=== PATIENT | male | born 1950 | race Caucasian/White ===

== ENCOUNTER 2022-03-06 07:28 | Inpatient (IN) | payer OTHER, MEDICARE ==
[2022-03-06] MEDS ORDERED: Ketorolac Tromethamine 30 MG/ML VIAL ONE (08:01)
[2022-03-06] MEDS ORDERED: Iopamidol-370 76% 500 ML 1 ML ONE (08:45)
[2022-03-06 09:36] LABS: #Monocytes 0.8 thou/uL (0.11-0.59); #Neutrophils 9.3 thou/uL (1.40-6.50); %Basophils 0.1 % (0.0-1.0); %Eosinophils 0.3 % (0.0-10.0); %Lymphocytes 9.1 % (21.0-51.0); %Monocytes 7.3 % (0.0-10.0); %Neutrophils 83.3 % (42.0-75.0); Hemoglobin 16.5 g/dL (14.0-18.0); Mean Corpuscular HGB CONC 35.1 g/dL (32.0-36.0); Mean Corpuscular Hemoglobin 34.3 pg (27.0-31.0); Mean Corpuscular Volume 97.7 fL (78.0-98.0); Mean Platelet Volume 8.2 fL (7.4-10.4); Platelet Count 152 thou/uL (130-400); RBC Distribution Width 12.1 % (11.5-14.5); Red Blood Cell (RBC) Count 4.81 mill/uL (4.70-6.10); White Blood Cell (WBC) Count 11.1 thou/uL (4.8-10.8)
[2022-03-06] MEDS ORDERED: Morphine 4 MG/ML VIAL ONE ×2 (09:50→11:43)
[2022-03-06] MEDS ORDERED: Ondansetron PF 4 MG/2 ML Vial ONE (09:51)
[2022-03-06 09:59] LABS: ALT (SGPT) 42 U/L (8-55); AST (SGOT) 28 U/L (5-34); Albumin 3.9 g/dL (3.4-4.8); Alcohol Less than 10 mg/dL (Less than 10); Alkaline Phosphatase 105 U/L (40-110); Anion Gap 11 mmol/L (10-20); BUN (Urea Nitrogen) 15 mg/dL (8.4-25.7); Bilirubin, Total 0.8 mg/dL (0.2-1.2); Calc. Creatinine Clearance 0 mL/min (70-130); Calcium 9.3 mg/dL (7.8-10.44); Carbon Dioxide 25 mmol/L (23-31); Chloride 107 mmol/L (98-107); Estimated GFR 89; Globulin 2.6 g/dL (2.4-3.5); Glucose 122 mg/dL (80-115); Lipase 17 U/L (8-78); Potassium 3.9 mmol/L (3.5-5.1); Protein, Total 6.5 g/dL (5.8-8.1); Sodium 139 mmol/L (136-145)
[2022-03-06] MEDS ORDERED: Nitroglycerin 0.4 MG TAB 1 EACH ONE ×2 (12:12→12:13)
[2022-03-06] MEDS ORDERED: Nitroglycerin 0.4 MG TAB (25 Tab Bottle) SL PRN (12:13)
[2022-03-06] MEDS ORDERED: Amiodarone 150 MG in Dextrose 5% in Water 100 ML IVPB SCH (12:15)
[2022-03-06] MEDS ORDERED: Ondansetron PF 4 MG/2 ML Vial IVP PRN (12:21)
[2022-03-06] MEDS ORDERED: Morphine 2 MG/ML VIAL SLOW IVP PRN (12:21)
[2022-03-06] MEDS ORDERED: TETANUS, DIPHTHERIA TOX,ADULT (TDVAX) 0.5 ML VIAL IM ONE (12:21)
[2022-03-06] MEDS ORDERED: Digoxin 0.5 MG/2 ML AMP ONE (12:40)
[2022-03-06] MEDS ORDERED: Digoxin 0.5 MG/2 ML AMP SLOW IVP SCH ×2 (12:45→18:00)
[2022-03-06 13:21] LABS: Magnesium 1.8 mg/dL (1.6-2.6)
[2022-03-06 13:24] LABS: Troponin I 0.047 ng/mL (< 0.028)
[2022-03-06] MEDS ORDERED: Magnesium 2 GM/50 ML(in water) 2 GM in Premix Bag 1 BAG IVPB SCH (13:30)
[2022-03-06] MEDS: Sodium Chloride 0.9% 1,000 ML IV SCH ×2 (13:31→20:59)
[2022-03-06 14:03] VITALS: BMI 31.2
[2022-03-06 14:13] LABS: Troponin I 0.045 ng/mL (< 0.028)
[2022-03-06] MEDS: Acetaminophen 500 MG TAB PO SCH ×2 (14:22→17:52)
[2022-03-06] MEDS: Amiodarone 450 MG in Dextrose 5% in Water 250 ML IVPB SCH (14:24)
[2022-03-06] MEDS ORDERED: FLU VACC QS2022-23(65YR UP)/PF 240 MCG/0.7 ML SYRINGE IM ONE (14:30)
[2022-03-06] MEDS ORDERED: Cyclobenzaprine 10 MG TAB PO PRN (15:40)
[2022-03-06] MEDS ORDERED: traMADol HCl 50 MG TAB PO SCH (15:45)
[2022-03-06] MEDS ORDERED: Ketorolac Tromethamine 30 MG/ML VIAL IVP SCH (15:45)
[2022-03-06] MEDS: Famotidine 20 MG TAB PO SCH (20:59)
[2022-03-06] MEDS: Gabapentin 300 MG CAP PO SCH (20:59)
[2022-03-06 21:03] LABS: Cardiac Risk 4.6 (Less than 4.5)
[2022-03-06 21:31] LABS: Amphetamine Detected (NotDetected); Barbiturates Screen Not Detected (NotDetected); Benzodiazepine Screen Not Detected (NotDetected); Cocaine Metabolite Screen Not Detected (NotDetected); Methadone Not Detected (NotDetected); Methamphetamine Detected (NotDetected); Opiate Screen Detected (NotDetected); Oxycodone Screen Not Detected (NotDetected); Phencyclidine (PCP) Not Detected (NotDetected); THC/Cannabinoid Screen Not Detected (NotDetected); Tricyclic Screen Not Detected (NotDetected)
[2022-03-06 21:33] LABS: Bacteria/HPF None Seen HPF (None Seen); Bilirubin Negative (Negative); Blood, Urine 3+ (Negative); Clarity Turbid (Clear); Glucose, Urine (Dipstick) Normal (Negative); Ketone, Urine Negative (Negative); Leukocyte Negative Leu/uL (Negative); Mucous/LPF Rare LPF (<2+); Nitrite Negative (Negative); Protein, Urine (Dipstick) 30 mg/dL (Neg-Trace); RBC/HPF Greater than 50 HPF (0-3); Renal Epithelial 0-3 HPF (None Seen); Specific Gravity, Urine 1.047 (1.002-1.036); Squamous Epithelial None Seen HPF (0-3); Urobilinogen Normal mg/dL (Less than 2); WBC/HPF 0-3 HPF (0-3); Yeast-Budding 2+ HPF (None Seen); pH, Urine 5.5 (5.0-9.0)
[2022-03-06 21:34] LABS: Urine Culture Reflex No No
[2022-03-07] MEDS: Ketorolac Tromethamine 30 MG/ML VIAL IVP SCH ×4 (00:01→16:52)
[2022-03-07] MEDS: Amiodarone 450 MG in Dextrose 5% in Water 250 ML IVPB SCH ×2 (00:43→21:00)
[2022-03-07 03:55] LABS: #Lymphocytes 1.9 thou/uL (1.20-3.40); #Monocytes 0.8 thou/uL (0.11-0.59); #Neutrophils 5.9 thou/uL (1.40-6.50); %Basophils 0.5 % (0.0-1.0); %Eosinophils 0.5 % (0.0-10.0); %Lymphocytes 21.7 % (21.0-51.0); %Monocytes 9.5 % (0.0-10.0); %Neutrophils 67.8 % (42.0-75.0); Hemoglobin 14.8 g/dL (14.0-18.0); Mean Corpuscular HGB CONC 33.5 g/dL (32.0-36.0); Mean Corpuscular Hemoglobin 32.8 pg (27.0-31.0); Mean Corpuscular Volume 97.9 fL (78.0-98.0); Mean Platelet Volume 8.5 fL (7.4-10.4); Platelet Count 152 thou/uL (130-400); RBC Distribution Width 12.4 % (11.5-14.5); Red Blood Cell (RBC) Count 4.51 mill/uL (4.70-6.10); White Blood Cell (WBC) Count 8.7 thou/uL (4.8-10.8)
[2022-03-07 04:13] LABS: Anion Gap 8 mmol/L (10-20); BUN (Urea Nitrogen) 15 mg/dL (8.4-25.7); Calc. Creatinine Clearance 103 mL/min (70-130); Carbon Dioxide 22 mmol/L (23-31); Chloride 111 mmol/L (98-107); Estimated GFR 90; Glucose 99 mg/dL (80-115); Magnesium 2.1 mg/dL (1.6-2.6); Potassium 4.3 mmol/L (3.5-5.1); Sodium 137 mmol/L (136-145)
[2022-03-07] MEDS: traMADol HCl 50 MG TAB PO SCH ×4 (06:10→16:51)
[2022-03-07] MEDS: Acetaminophen 500 MG TAB PO SCH ×4 (06:10→16:50)
[2022-03-07] MEDS: Sodium Chloride 0.9% 1,000 ML IV SCH (06:11)
[2022-03-07] MEDS: Gabapentin 300 MG CAP PO SCH ×3 (09:22→20:18)
[2022-03-07] MEDS: Famotidine 20 MG TAB PO SCH ×2 (09:23→20:18)
[2022-03-08] MEDS: Ketorolac Tromethamine 30 MG/ML VIAL IVP SCH (00:56)
[2022-03-08] MEDS: traMADol HCl 50 MG TAB PO SCH ×5 (00:56→23:40)
[2022-03-08] MEDS: Acetaminophen 500 MG TAB PO SCH ×5 (00:57→23:39)
[2022-03-08 04:04] LABS: #Eosinphils 0.1 thou/uL (0.0-0.7); #Lymphocytes 1.7 thou/uL (1.20-3.40); #Monocytes 0.8 thou/uL (0.11-0.59); %Basophils 0.5 % (0.0-1.0); %Eosinophils 0.6 % (0.0-10.0); %Lymphocytes 20.3 % (21.0-51.0); %Monocytes 8.8 % (0.0-10.0); %Neutrophils 69.8 % (42.0-75.0); Hemoglobin 14.3 g/dL (14.0-18.0); Mean Corpuscular HGB CONC 33.2 g/dL (32.0-36.0); Mean Corpuscular Volume 99.4 fL (78.0-98.0); Mean Platelet Volume 8.5 fL (7.4-10.4); Platelet Count 148 thou/uL (130-400); RBC Distribution Width 12.4 % (11.5-14.5); Red Blood Cell (RBC) Count 4.34 mill/uL (4.70-6.10); White Blood Cell (WBC) Count 8.5 thou/uL (4.8-10.8)
[2022-03-08 04:41] LABS: Anion Gap 10 mmol/L (10-20); BUN (Urea Nitrogen) 23 mg/dL (8.4-25.7); Calc. Creatinine Clearance 70 mL/min (70-130); Calcium 8.4 mg/dL (7.8-10.44); Carbon Dioxide 25 mmol/L (23-31); Chloride 108 mmol/L (98-107); Estimated GFR 55; Glucose 89 mg/dL (80-115); Magnesium 2.3 mg/dL (1.6-2.6); Potassium 4.9 mmol/L (3.5-5.1); Sodium 138 mmol/L (136-145)
[2022-03-08] MEDS ORDERED: Sodium Chloride 0.9% 1,000 ML IV SCH (08:45)
[2022-03-08] MEDS: Amiodarone 200 MG TAB PO SCH ×2 (09:04→21:53)
[2022-03-08] MEDS: Gabapentin 300 MG CAP PO SCH ×3 (09:04→21:53)
[2022-03-08] MEDS: Enoxaparin Sodium 40 MG/0.4 ML SYRINGE SC SCH (09:05)
[2022-03-08] MEDS: Famotidine 20 MG TAB PO SCH ×2 (09:05→21:53)
[2022-03-08 11:01] LABS: CKMB 2.3 ng/mL (0-6.6)
[2022-03-08] MEDS ORDERED: Ibuprofen 200 MG TAB PO SCH (14:00)
[2022-03-08] MEDS ORDERED: Ibuprofen 600 MG TAB PO SCH (14:00)
[2022-03-09 04:23] LABS: #Basophils 0.1 thou/uL (0.0-0.2); #Lymphocytes 1.8 thou/uL (1.20-3.40); #Monocytes 0.7 thou/uL (0.11-0.59); #Neutrophils 6.1 thou/uL (1.40-6.50); %Basophils 0.9 % (0.0-1.0); %Eosinophils 0.2 % (0.0-10.0); %Lymphocytes 20.8 % (21.0-51.0); %Monocytes 7.9 % (0.0-10.0); %Neutrophils 70.3 % (42.0-75.0); Hemoglobin 14.8 g/dL (14.0-18.0); Mean Corpuscular HGB CONC 33.6 g/dL (32.0-36.0); Mean Corpuscular Hemoglobin 33.2 pg (27.0-31.0); Mean Corpuscular Volume 98.8 fL (78.0-98.0); Mean Platelet Volume 8.8 fL (7.4-10.4); Platelet Count 148 thou/uL (130-400); RBC Distribution Width 12.1 % (11.5-14.5); Red Blood Cell (RBC) Count 4.47 mill/uL (4.70-6.10); White Blood Cell (WBC) Count 8.7 thou/uL (4.8-10.8)
[2022-03-09 04:47] LABS: Anion Gap 8 mmol/L (10-20); BUN (Urea Nitrogen) 20 mg/dL (8.4-25.7); Calc. Creatinine Clearance 97 mL/min (70-130); Calcium 8.4 mg/dL (7.8-10.44); Carbon Dioxide 28 mmol/L (23-31); Chloride 108 mmol/L (98-107); Estimated GFR 82; Glucose 92 mg/dL (80-115); Phosphorus 2.4 mg/dL (2.3-4.7); Potassium 4.5 mmol/L (3.5-5.1); Sodium 139 mmol/L (136-145)
[2022-03-09] MEDS: Acetaminophen 500 MG TAB PO SCH (05:46)
[2022-03-09] MEDS: traMADol HCl 50 MG TAB PO SCH (05:46)
[2022-03-09] MEDS: Amiodarone 200 MG TAB PO SCH ×2 (09:04→21:19)
[2022-03-09] MEDS: Famotidine 20 MG TAB PO SCH ×2 (09:05→21:17)
[2022-03-09] MEDS: Valsartan 80 MG TAB PO SCH (09:05)
[2022-03-09] MEDS: Gabapentin 300 MG CAP PO SCH ×3 (09:05→21:18)
[2022-03-09] MEDS: Enoxaparin Sodium 40 MG/0.4 ML SYRINGE SC SCH (09:05)
[2022-03-09] MEDS ORDERED: Acetaminophen/Codeine 30-300mg Tablet PO PRN (09:12)
[2022-03-09] MEDS ORDERED: Acetaminophen/Codeine 30-300mg Tablet PO SCH (12:00)
[2022-03-09] MEDS ORDERED: Acetaminophen 325 MG TAB PO SCH (12:00)
[2022-03-09] MEDS: Senokot S 8.6-50 MG TAB PO SCH (21:18)
[2022-03-09] MEDS: Acetaminophen 325 MG TAB PO SCH (21:19)
[2022-03-09] MEDS: Acetaminophen/Codeine 30-300mg Tablet PO SCH (21:20)
[2022-03-10] MEDS: Acetaminophen/Codeine 30-300mg Tablet PO SCH ×4 (02:05→20:38)
[2022-03-10] MEDS: Acetaminophen 325 MG TAB PO SCH ×4 (02:05→20:38)
[2022-03-10 04:28] LABS: Anion Gap 12 mmol/L (10-20); BUN (Urea Nitrogen) 13 mg/dL (8.4-25.7); Calc. Creatinine Clearance 125 mL/min (70-130); Calcium 8.3 mg/dL (7.8-10.44); Carbon Dioxide 23 mmol/L (23-31); Chloride 104 mmol/L (98-107); Estimated GFR 97; Glucose 94 mg/dL (80-115); Potassium 3.8 mmol/L (3.5-5.1); Sodium 135 mmol/L (136-145)
[2022-03-10] MEDS: Polyethylene Glycol 3350 17 GM Packet PO SCH (08:28)
[2022-03-10] MEDS: Valsartan 80 MG TAB PO SCH (08:28)
[2022-03-10] MEDS: Famotidine 20 MG TAB PO SCH ×2 (08:28→20:39)
[2022-03-10] MEDS: Amiodarone 200 MG TAB PO SCH ×2 (08:28→20:39)
[2022-03-10] MEDS: Enoxaparin Sodium 40 MG/0.4 ML SYRINGE SC SCH (08:29)
[2022-03-10] MEDS: Senokot S 8.6-50 MG TAB PO SCH ×2 (08:29→20:39)
[2022-03-10] MEDS: Gabapentin 300 MG CAP PO SCH ×3 (08:29→20:39)
[2022-03-10] MEDS ORDERED: NIFEdipine XL 30 MG TAB PO SCH (09:45)
[2022-03-10] MEDS: hydrALAZINE 20 MG/ML VIAL SLOW IVP PRN (13:48)
[2022-03-11] MEDS: Acetaminophen/Codeine 30-300mg Tablet PO SCH ×4 (01:46→20:26)
[2022-03-11] MEDS: Acetaminophen 325 MG TAB PO SCH ×4 (01:46→20:25)
[2022-03-11 05:30] LABS: Anion Gap 11 mmol/L (10-20); BUN (Urea Nitrogen) 10 mg/dL (8.4-25.7); Calc. Creatinine Clearance 116 mL/min (70-130); Calcium 9.6 mg/dL (7.8-10.44); Carbon Dioxide 24 mmol/L (23-31); Chloride 105 mmol/L (98-107); Estimated GFR 95; Glucose 111 mg/dL (80-115); Potassium 4.4 mmol/L (3.5-5.1); Sodium 136 mmol/L (136-145)
[2022-03-11] MEDS: hydrALAZINE 20 MG/ML VIAL SLOW IVP PRN (05:44)
[2022-03-11] MEDS: Valsartan 80 MG TAB PO SCH (09:58)
[2022-03-11] MEDS: Senokot S 8.6-50 MG TAB PO SCH ×2 (09:58→20:27)
[2022-03-11] MEDS: Enoxaparin Sodium 40 MG/0.4 ML SYRINGE SC SCH (09:58)
[2022-03-11] MEDS: Polyethylene Glycol 3350 17 GM Packet PO SCH (09:58)
[2022-03-11] MEDS: Amiodarone 200 MG TAB PO SCH ×2 (09:58→20:26)
[2022-03-11] MEDS: Famotidine 20 MG TAB PO SCH ×2 (09:58→20:26)
[2022-03-11] MEDS: NIFEdipine XL 30 MG TAB PO SCH (09:58)
[2022-03-11] MEDS: Gabapentin 300 MG CAP PO SCH ×3 (09:58→20:27)
[2022-03-12] MEDS: Acetaminophen 325 MG TAB PO SCH ×4 (03:30→20:55)
[2022-03-12] MEDS: Acetaminophen/Codeine 30-300mg Tablet PO SCH ×4 (03:31→20:56)
[2022-03-12 05:39] LABS: Anion Gap 13 mmol/L (10-20); BUN (Urea Nitrogen) 22 mg/dL (8.4-25.7); Calc. Creatinine Clearance 95 mL/min (70-130); Calcium 9.7 mg/dL (7.8-10.44); Carbon Dioxide 23 mmol/L (23-31); Chloride 106 mmol/L (98-107); Estimated GFR 81; Glucose 99 mg/dL (80-115); Sodium 138 mmol/L (136-145)
[2022-03-12] MEDS: Famotidine 20 MG TAB PO SCH ×2 (08:43→20:56)
[2022-03-12] MEDS: Enoxaparin Sodium 40 MG/0.4 ML SYRINGE SC SCH (08:43)
[2022-03-12] MEDS: Amiodarone 200 MG TAB PO SCH ×2 (08:43→20:56)
[2022-03-12] MEDS: Gabapentin 300 MG CAP PO SCH ×3 (08:43→20:56)
[2022-03-12] MEDS: Senokot S 8.6-50 MG TAB PO SCH ×2 (08:44→20:57)
[2022-03-12] MEDS: Polyethylene Glycol 3350 17 GM Packet PO SCH (08:44)
[2022-03-12] MEDS: NIFEdipine XL 30 MG TAB PO SCH (08:44)
[2022-03-12] MEDS: Valsartan 80 MG TAB PO SCH (08:48)
[2022-03-13] MEDS: Acetaminophen/Codeine 30-300mg Tablet PO SCH ×4 (04:00→21:16)
[2022-03-13] MEDS: Acetaminophen 325 MG TAB PO SCH ×4 (04:00→21:20)
[2022-03-13 04:49] LABS: #Basophils 0.1 thou/uL (0.0-0.2); #Lymphocytes 1.9 thou/uL (1.20-3.40); #Monocytes 0.8 thou/uL (0.11-0.59); #Neutrophils 4.1 thou/uL (1.40-6.50); %Eosinophils 0.6 % (0.0-10.0); %Lymphocytes 27.6 % (21.0-51.0); %Monocytes 11.2 % (0.0-10.0); %Neutrophils 59.6 % (42.0-75.0); Hemoglobin 16.7 g/dL (14.0-18.0); Mean Corpuscular HGB CONC 33.4 g/dL (32.0-36.0); Mean Corpuscular Hemoglobin 32.6 pg (27.0-31.0); Mean Corpuscular Volume 97.6 fL (78.0-98.0); Mean Platelet Volume 7.9 fL (7.4-10.4); Platelet Count 212 thou/uL (130-400); RBC Distribution Width 12.3 % (11.5-14.5); Red Blood Cell (RBC) Count 5.13 mill/uL (4.70-6.10); White Blood Cell (WBC) Count 6.9 thou/uL (4.8-10.8)
[2022-03-13 05:01] LABS: Anion Gap 10 mmol/L (10-20); BUN (Urea Nitrogen) 21 mg/dL (8.4-25.7); Calc. Creatinine Clearance 106 mL/min (70-130); Calcium 9.1 mg/dL (7.8-10.44); Carbon Dioxide 23 mmol/L (23-31); Chloride 107 mmol/L (98-107); Estimated GFR 91; Glucose 103 mg/dL (80-115); Potassium 4.2 mmol/L (3.5-5.1); Sodium 136 mmol/L (136-145)
[2022-03-13] MEDS: Famotidine 20 MG TAB PO SCH ×2 (10:31→21:15)
[2022-03-13] MEDS: Gabapentin 300 MG CAP PO SCH ×3 (10:31→21:14)
[2022-03-13] MEDS: Enoxaparin Sodium 40 MG/0.4 ML SYRINGE SC SCH (10:31)
[2022-03-13] MEDS: Senokot S 8.6-50 MG TAB PO SCH ×2 (10:32→21:17)
[2022-03-13] MEDS: Polyethylene Glycol 3350 17 GM Packet PO SCH (10:32)
[2022-03-13] MEDS: NIFEdipine XL 30 MG TAB PO SCH (10:58)
[2022-03-13] MEDS: Valsartan 80 MG TAB PO SCH (10:59)
[2022-03-13] MEDS ORDERED: Lidocaine Viscous Sol 2% 15 ml UD Cup ONE (12:43)
[2022-03-13] MEDS ORDERED: PROPOFOL 40 ML ONE (12:43)
[2022-03-13] MEDS ORDERED: PROPOFOL 200 MG/20 ML VIAL ONE (12:52)
[2022-03-14] MEDS: Acetaminophen 325 MG TAB PO SCH ×4 (02:33→21:10)
[2022-03-14] MEDS: Acetaminophen/Codeine 30-300mg Tablet PO SCH ×4 (02:34→21:25)
[2022-03-14 04:58] LABS: Anion Gap 9 mmol/L (10-20); BUN (Urea Nitrogen) 18 mg/dL (8.4-25.7); Calc. Creatinine Clearance 96 mL/min (70-130); Calcium 8.9 mg/dL (7.8-10.44); Carbon Dioxide 26 mmol/L (23-31); Chloride 106 mmol/L (98-107); Estimated GFR 81; Glucose 104 mg/dL (80-115); Sodium 137 mmol/L (136-145)
[2022-03-14] MEDS: Valsartan 80 MG TAB PO SCH (08:58)
[2022-03-14] MEDS: NIFEdipine XL 30 MG TAB PO SCH (08:59)
[2022-03-14] MEDS: Gabapentin 300 MG CAP PO SCH ×3 (08:59→21:28)
[2022-03-14] MEDS: Senokot S 8.6-50 MG TAB PO SCH ×2 (09:01→21:10)
[2022-03-14] MEDS: Amiodarone 200 MG TAB PO SCH (09:06)
[2022-03-14] MEDS: Famotidine 20 MG TAB PO SCH ×2 (09:06→21:29)
[2022-03-14] MEDS: Enoxaparin Sodium 40 MG/0.4 ML SYRINGE SC SCH (09:07)
[2022-03-14] MEDS: Polyethylene Glycol 3350 17 GM Packet PO SCH (09:12)
[2022-03-15] MEDS: Acetaminophen 325 MG TAB PO SCH ×4 (03:34→21:05)
[2022-03-15] MEDS: Acetaminophen/Codeine 30-300mg Tablet PO SCH ×4 (03:36→21:07)
[2022-03-15 05:40] LABS: Anion Gap 14 mmol/L (10-20); BUN (Urea Nitrogen) 19 mg/dL (8.4-25.7); Calc. Creatinine Clearance 116 mL/min (70-130); Calcium 8.9 mg/dL (7.8-10.44); Carbon Dioxide 21 mmol/L (23-31); Chloride 105 mmol/L (98-107); Estimated GFR 96; Glucose 92 mg/dL (80-115); Potassium 3.9 mmol/L (3.5-5.1); Sodium 136 mmol/L (136-145)
[2022-03-15] MEDS: Famotidine 20 MG TAB PO SCH ×2 (09:34→21:04)
[2022-03-15] MEDS: Gabapentin 300 MG CAP PO SCH ×3 (09:35→21:04)
[2022-03-15] MEDS: Valsartan 80 MG TAB PO SCH (09:35)
[2022-03-15] MEDS: NIFEdipine XL 30 MG TAB PO SCH (09:35)
[2022-03-15] MEDS: Polyethylene Glycol 3350 17 GM Packet PO SCH (09:36)
[2022-03-15] MEDS: Amiodarone 200 MG TAB PO SCH (09:36)
[2022-03-15] MEDS: Enoxaparin Sodium 40 MG/0.4 ML SYRINGE SC SCH (09:36)
[2022-03-15] MEDS: Senokot S 8.6-50 MG TAB PO SCH ×2 (09:37→21:07)
[2022-03-15] MEDS: Apixaban 2.5 MG TAB PO SCH (21:06)
[2022-03-16] MEDS: Acetaminophen 325 MG TAB PO SCH ×2 (02:25→10:23)
[2022-03-16] MEDS: Acetaminophen/Codeine 30-300mg Tablet PO SCH ×2 (02:25→08:39)
[2022-03-16] MEDS ORDERED: NIFEdipine XL 30 MG TAB PO SCH (07:21)
[2022-03-16] MEDS: Amiodarone 200 MG TAB PO SCH (08:49)
[2022-03-16] MEDS: Senokot S 8.6-50 MG TAB PO SCH (08:50)
[2022-03-16] MEDS: Polyethylene Glycol 3350 17 GM Packet PO SCH (08:51)
[2022-03-16] MEDS: Apixaban 2.5 MG TAB PO SCH (08:52)
[2022-03-16] MEDS: Valsartan 80 MG TAB PO SCH (08:52)
[2022-03-16] MEDS: Famotidine 20 MG TAB PO SCH (08:54)
[2022-03-16] MEDS: Gabapentin 300 MG CAP PO SCH (08:54)
[2022-03-16] MEDS ORDERED: NIFEdipine XL 60 MG TAB PO SCH (09:00)
[2022-03-16 12:29] VITALS: BP 114/57; TEMP 97.8
[2022-03-22] MEDS ORDERED: Amiodarone 200 MG TAB PO SCH (09:00)
[2022-04-05] MEDS ORDERED: Amiodarone 200 MG TAB PO SCH (09:00)
== END 2022-03-16 12:29 | disposition home or self-care (01) | DRG 964 ==
LOC: ERS 07:28 → ERHOLD 11:51 → IMCU/EMU 13:59 → OBSVTOIN 03-08 09:11 → 2NO 03-08 19:46
PROVIDERS: ADMIT Surgery; ATTEND Surgery
PROC: B24BZZ4 Ultrasonography of Heart with Aorta, Transesophageal (ICD-10-PCS; principal; 2022-03-13)
PROC: 5A2204Z Restoration of Cardiac Rhythm, Single (ICD-10-PCS; 2022-03-13)
DX: S36.892A Contusion of other intra-abdominal organs, initial encounter (principal); I24.8 Other forms of acute ischemic heart disease; S26.91XA Contusion of heart, unspecified with or without hemopericardium, initial encounter; I48.3 Typical atrial flutter; S32.028A Other fracture of second lumbar vertebra, initial encounter for closed fracture; N17.9 Acute kidney failure, unspecified; S22.20XA Unspecified fracture of sternum, initial encounter for closed fracture; S22.41XA Multiple fractures of ribs, right side, initial encounter for closed fracture; S27.892A Contusion of other specified intrathoracic organs, initial encounter; I10 Essential (primary) hypertension; G89.11 Acute pain due to trauma; I25.10 Atherosclerotic heart disease of native coronary artery without angina pectoris; Z20.822 Contact with and (suspected) exposure to COVID-19; I34.0 Nonrheumatic mitral (valve) insufficiency; V43.52XA Car driver injured in collision with other type car in traffic accident, initial encounter; Z82.49 Family history of ischemic heart disease and other diseases of the circulatory system
CPT/HCPCS: 36415; 71045; 71260; 72125; 72131; 74177; 80048; 80053; 80061; 80306; 80307; 81001; 82550; 82553; 83605; 83690; 83735; 83880; 84100; 84484; 85025; 87811; 92960; 93005; 93010; 93306; 93312; 94640; 96365; 96366; 96372; 96374; 96375; 96376; G0378; J0282; J0360; J1160; J1650; J1885; J2270; J2405; J2704; J3475; J7050; J7070; J7620; Q9967; U0003; U0005